=== PATIENT | female | born 1960 | race Hispanic/Latino ===

== ENCOUNTER 2016-12-01 08:45 | Day surgery (SDC) | payer OTHER ==
[~2016-12-01] VITALS: Ht 160 cm; Wt 69.0 kg
[~2016-12-01 08:45] MED LIST: IBUP200C11 PO; Lactated Ringer's 1,000 ML IV ONE
[2016-12-01] MEDS ORDERED: Propofol 10,000 mCg/mL 20 mL Inj ONE (08:46)
[2016-12-01 09:15] VITALS: BP 141/77; PULSE 76; RESP 14; O2SAT 98
[2016-12-01 09:16] VITALS: BP 141/77; PULSE 76; RESP 14; O2SAT 98
[2016-12-01] MEDS ORDERED: Ondansetron 2 mg/mL 2 mL Inj IVPUSH PRN (10:15)
[2016-12-01] MEDS ORDERED: Lactated Ringer's 1,000 ML IV SCH (10:15)
[2016-12-01] MEDS ORDERED: MetoCLOpramide 5 mg/mL 2 mL Inj IVPUSH PRN (10:15)
[2016-12-01 10:19] VITALS: BP 109/69; PULSE 68; RESP 16; O2SAT 97
[2016-12-01 10:29] VITALS: BP 109/69; PULSE 72; RESP 16; O2SAT 98
[2016-12-01 10:39] VITALS: BP 109/66; PULSE 61; RESP 16; O2SAT 98
--- NOTE | 2016-12-01 10:39 | ENDO ---
[address] [address] ENDOSCOPY PROCEDURE PATIENT: ROGELIO LOPEZ : 1960 MR#: [id number] ADMIT: 12/01/2016 JOB ID: [id number] DATE OF SERVICE: 12/01/2016 FIRST PROCEDURE PERFORMED: Esophagogastroduodenoscopy. INDICATION: Gastroesophageal reflux. ASA CLASSIFICATION, MALLAMPATI SCORE AND MEDICATIONS: The patient's ASA classification, Mallampati score and medications as per anesthesia note. INSTRUMENT USED: [id number]. PROCEDURE DETAILS: After informed consent was obtained, the patient was brought into the GI suite, where she was placed on oxygen via nasal cannula and monitored with continuous pulse oximeter, telemetry, and blood pressure monitoring. A time-out was performed. Then, she was placed in the left lateral decubitus position, and medications were administered for sedation. A bite block was then placed, and then the standard EGD scope was inserted through the bite block and advanced under direct visualization to the second portion of the duodenum without difficulty. FINDINGS: 1. Normal appearing duodenal bulb, first and second portions. Multiple random biopsies were obtained. 2. Normal appearing pylorus and antrum. In the body of stomach there were multiple polyps ranging in size from 5 mm to 8 mm. Appearance of these polyps was consistent with fundic gland polyps. The polyps were sampled with a cold biopsy forceps. 3. Retroflexed views in the gastric body revealed normal appearing cardia and fundus. 4. The GE junction was at approximately 39 cm. At 39 cm, there was a 6-7 mm inflammatory appearing nodule suggestive of esophagitis. Multiple biopsies were obtained. 5. The GE junction was slightly irregular. There was a short tongue of salmon-colored mucosa arising from the GE junction. Biopsy was obtained. 6. The remainder of the esophageal exam was otherwise unremarkable. Multiple outside biopsies were obtained in midesophagus secondary to the patient's complaint of dysphagia. IMPRESSION: 1. Multiple gastric body polyps, appearance consistent with fundic gland polyps. 2. Gastroesophageal junction nodule. 3. Irregular gastroesophageal junction. RECOMMENDATIONS: 1. Reflux precautions. PPI daily. 2. Await biopsy results. 3. Proceed to colonoscopy. SECOND PROCEDURE PERFORMED: Colonoscopy. INDICATION: Patient with a history of colon polyps. ASA CLASSIFICATION, MALLAMPATI SCORE AND MEDICATIONS: Please see above for ASA classification, Mallampati score and medications. INSTRUMENT USED: [id number]. PREPARATION QUALITY: Good. PROCEDURE DETAILS: After completion of the EGD exam, a digital rectal exam was performed which was unremarkable. The colonoscope was then inserted into the rectum and advanced under direct visualization to the terminal ileum, which was identified by the presence of the ileocecal valve and villous appearing mucosa of the terminal ileum. Once the terminal ileum was reached, the colonoscope was withdrawn back into the rectum as the mucosa and lumen were examined. In the rectum, retroflexion was performed. Following retroflexion, remaining air in the rectum was suctioned, and procedure was completed. FINDINGS: 1. In the transverse colon there were four polyps that ranged from 4 mm to 6 mm. Polyps were removed with a cold snare. 2. In the descending colon there was a diminutive polyp that was removed with a cold biopsy forceps. 3. In the rectum there was an approximately 7 mm sessile polyp that was removed with a hot snare. 4. The remainder of the colon exam was otherwise unremarkable. IMPRESSION: 1. Four transverse colon polyps. 2. One descending polyp. 3. One rectal polyp. RECOMMENDATIONS: 1. Avoid NSAIDs and anticoagulants for 72 hours. 2. Repeat colonoscopy in three years. COMPLICATIONS: None. ESTIMATED BLOOD LOSS: Less than 5 mL.
--- NOTE | 2016-12-01 10:50 | PCM.HPANE ---
Patient Data Date of Service: December 01, 2016 Surgeon Admitting Provider: Attending Provider:Sheila Sauer MD Primary Care Physician:Grey Rowe MD Other Provider:Uriel Gray Anesthesia Reason for Visit Adenomatous Polyp Of Colon, Gerd Ht/WT & BMI Height (Feet): 5 Height (Inches): 3 Weight (Kilograms): 68.95 Body Mass Index 26.00 Allergies Coded Allergies: acetaminophen (Verified Allergy, Unknown, THROAT SWELLS, 12/01/16) Past Anesthesia History Anesthesia History: Positive for:: Anesthesia Reactions (DIFFICULT TO WAKEUP), Denies:: Abnormal Airway, Difficult Intubation, Fam Anesthesia Reaction, Fam Malignant Hypertherm, Malignant Hyperthermia Diabetes History Hx Diabetes?: No MRSA MRSA: No Medications Home Meds Incl Beta Priscilla: No Reported Medications Ibuprofen (Advil)200 Mg [id number] Mg PO q4-8 hours PRN For Pain 11/30/16 History History of ENT Problems?: Yes HEENT History: Positive for:: Dysphagia Denies:: Abnormal Airway Difficult Intubation Hearing Problem Denture Type: None Teeth Condition: Within Normal Limits Hx of Heart Problems?: No Cardiovascular History: Positive for:: Irregular Heartbeat Denies:: AICD Atrial Fibrillation Chest Pain Hypertension Pacemaker Valvular Heart Disease Other Cardiac History: ELEVATED CHOLERSTRAL Hx of Respiratory Problem?: Yes Respiratory History: Positive for:: Use of C-PAP Machine Hx Neurologic Problems?: No Neurological History: Denies:: CVA Hx of GI Problems?: Yes Gastrointestinal History: Positive for:: Gastroesphageal Reflux Hx of Problems?: No HX of Peritoneal Dialysis: No Hx Musculoskeletal Problems?: No Musculoskeletal History: Denies:: Fibromyalgia Joint Replacement Hx of Psycho/Social Problems?: No Psycho Social History: Denies:: Anxiety Hx Depression Hx Surgeries?: Yes (HYSTERECTOMY TUBAL) Hx Any Other Health Problems?: No Hx Diabetes: No Hx Alcohol Use: No Stop/Bang Treated for Sleep Apnea?: Yes Do You Have a CPAP Machine?: No (ONCE IN A WHILE) Risk Assessment Category Category 1A: Patient has history of documented sleep apnea, and HAS NOT received any narcotic, sedative or anesthesia administration during this stay. Category 1B: Patient has history of documented sleep apnea, and HAS received any narcotic , sedative or anesthesia administration during this stay Category 2: Patient has SUSPECTED Obstructive Sleep Apnea, and HAS received any narcotic , sedative or anesthesia administration during this stay. Category 3: Patient has SUSPECTED Obstructive Sleep Apnea and HAS NOT received narcotic, sedative or anesthesia administration during this stay. Category 4: Outpatient in Procedural Areas with known sleep apnea or who screen positive for High Risk via the STOP/BANG questionnaire. Exam Exam Vital Signs Vital Signs Date Time Temp Pulse Resp B/P Pulse Ox O2 Delivery O2 Flow Rate FiO2 12/01/16 10:19 36.2 68 16 109/69 97 Room Air 12/01/16 09:16 36.9 76 14 141/77 98 Room Air 12/01/16 09:15 76 14 141/77 98 Room Air General Appearance: Oriented X3 HEENT/AIRWAY: MP 2 Lungs: Clear to Auscultation Heart: Exam Unremarkable Meds/Labs/Diagnostics Admission Meds Current Medications Lactated Ringer's (Lr) 1,000 ml @ 10 mls/hr Q24H ONCE IV Last administered on 12/01/16t 09:55; Start 12/01/16 at 06:00; Stop 12/02/16 at 05:59 Plan Impression Patient chart reviewed, patient interviewed and anesthestic plan with risks, benefits, and alternatives discussed, and informed consent obtained. NPO per Anesth. Guidelines: Yes ASA Physical Status: ASA2 Mod Systemic Disease Bene/Risks/Altern/Consents: Yes HP Complete Prior to Induction: Yes Hector Enamorado MD December 01, 2016 10:50
--- NOTE | 2016-12-01 10:51 | PCM.ANEP1 ---
Post Anesthesia Phase 1 PACU Phase 1 Assessment Date of Service: December 01, 2016 Vital Signs Vital Signs Date Time Temp Pulse Resp B/P Pulse Ox O2 Delivery O2 Flow Rate FiO2 12/01/16 10:19 36.2 68 16 109/69 97 Room Air 12/01/16 09:16 36.9 76 14 141/77 98 Room Air 12/01/16 09:15 76 14 141/77 98 Room Air Anesthetic Administered: MAC Level of Alertness: Awake, talking Pain: No Nausea or Vomiting: No Lungs: Clear to Auscultation Complications: No Follow up Care: No Hector Enamorado MD December 01, 2016 10:51
--- NOTE | 2016-12-02 09:54 | PATH ---
SURGICAL PATHOLOGY Attending Physician:Shawna Lozano CASE STATUS: Signed Out PATIENT NAME: ROGELIO ADDISON PID: [id number] : 1960 DATE COLLECTED:12/01/2016 16:23 SPECIMEN: 1: Duodenum, Biopsy 2: Gastric, Biopsy 3: Esophagus, Biopsy 4: Gastric, Biopsy 5: Esophagus, Biopsy 6: Esophagus, Biopsy 7: Colon, Biopsy 8: Colon, Biopsy 9: Rectum, Biopsy CLINICAL HISTORY: 1. DUODENAL BIOPSY 2. GASTRIC BIOPSY 3. ESOPHAGEAL (DISTAL) BIOPSY 4. GASTRIC BODY POLYP BIOPSY 5. GEJ NODULE BIOPSY 6. MID ESOPHAGIAL BIOPSY 7. TRANSVERSE POLYPS 8. DESCENDING POLYP 9. RECTAL POLYP FINAL DIAGNOSIS: 1.DUODENUM BIOPSY: FRAGMENTS OF NORMAL-APPEARING DUODENAL MUCOSA. Normal delicate mucosal villi present. Negative for significant inflammation, dysplasia and malignancy. 2.GASTRIC BIOPSY: FRAGMENTS OF FUNDIC AND ANTRAL MUCOSA NEGATIVE FOR SIGNIFICANT INFLAMMATION. Negative for evidence of Helicobacter. Negative for intestinal metaplasia. Negative for dysplasia and malignancy. 3.DISTAL ESOPHAGUS BIOPSY: SQUAMOUS MUCOSA AND GASTRIC CARDIA-TYPE MUCOSA POSITIVE FOR SPECIALIZED METAPLASIA OF VALADEZ' S-TYPE ESOPHAGUS. Negative for dysplasia and malignancy. Negative for squamous intraepithelial eosinophils. 4.GASTRIC BIOPSY: FUNDIC GLAND POLYP, NEGATIVE FOR ATYPIA. Negative for evidence of Helicobacter. Negative for intestinal metaplasia. Negative for dysplasia and malignancy. 5.ESOPHAGUS BIOPSY: GASTRIC CARDIA-TYPE MUCOSA AND SMALL AMOUNT OF SQUAMOUS MUCOSA WITH CHRONIC ACTIVE INFLAMMATION AND REACTIVE EPITHELIAL CHANGES. Negative for specialized metaplasia of Valadez' s-type esophagus. Negative for dysplasia and malignancy. Negative for squamous intraepithelial eosinophils. 6.MID ESOPHAGUS BIOPSY: FRAGMENTS OF SQUAMOUS EPITHELIUM, NEGATIVE FOR ATYPIA. Negative for intraepithelial eosinophils. 7.COLON BIOPSY: TUBULAR ADENOMA INVOLVING ALL BIOPSY FRAGMENTS. 8.COLON BIOPSY: TUBULAR ADENOMA INVOLVING BOTH BIOPSY FRAGMENTS. 9.RECTUM BIOPSY: TUBULAR ADENOMA INVOLVING BOTH BIOPSY FRAGMENTS. ICD10 CODE K22.70 GROSS DESCRIPTION: The specimen is received in nine formalin filled containers labeled with the patient's name. 1). The specimen is sublabeled "duodenal" and consists of 2 tiny portions of tissue which aggregate to 0.3 x 0.2 x 0.2 CM. The specimen is entirely submitted in cassette 1A. 2). The specimen is sublabeled "gastric" and consists of 3 portions of tissue which aggregate to 0.3 x 0.3 x 0.2 CM. The specimen is entirely submitted in cassette 2A. 3). The specimen is sublabeled "distal esophagus" and consists of a 0.4 x 0.3 x 0.2 CM portion of tissue which is entirely submitted in cassette 3A. 4). The specimen is sublabeled "gastric body polyp" and consists of a 0.3 x 0.3 x 0.3 CM portion of tissue which is entirely submitted in cassette 4A. 5). The specimen is sublabeled "GEJ nodule" and consists of 2 portions of tissue which aggregate to 0.2 x 0.2 x 0.2 CM. The specimen is entirely submitted in cassette 5A. 6). The specimen is sublabeled "mid esophageal" and consists of 2 portions of tissue which aggregate to 0.2 x 0.2 x 0.2 CM. The specimen is entirely submitted in cassette 6A. 7). The specimen is sublabeled "transverse polyp" and consists of 5 portions of tissue which aggregate to 0.5 x 0.5 x 0.3 CM. The specimen is entirely submitted in cassette 7A. 8). The specimen is sublabeled "descending polyp" and consists of 2 portions of tissue which aggregate to 0.2 x 0.2 x 0.2 CM. The specimen is entirely submitted in cassette 8A. 9). The specimen is sublabeled "rectal polyp" and consists of 2 portions of tissue which aggregate to 0.4 x 0.4 x 0.3 CM. The specimen is entirely submitted in cassette 9A. . 12/01/2016 DAC MICRO DESCRIPTION: See diagnosis. ICD-9 CODES: CPT CODES: 1: 45602 2: 39161 3: 12312 4: 27885 5: 38463 6: 40286 7: 65481 8: 50732 9: 95734 Electronically Signed Out Valentin Nathan MD [facility] Pathology [facility] [address], [place] [address] Technical component performed at [facility], [facility] [address], [place], [address]
== END 2016-12-01 23:59 | disposition home or self-care (01) ==
LOC: END 08:45
PROVIDERS: ATTEND Internal Medicine Gastroenterology
DX: Z12.11 Encounter for screening for malignant neoplasm of colon (principal); Z86.010 Personal history of colon polyps; D12.3 Benign neoplasm of transverse colon; D12.4 Benign neoplasm of descending colon; D12.8 Benign neoplasm of rectum; K31.7 Polyp of stomach and duodenum; K22.70 Barrett's esophagus without dysplasia; K21.9 Gastro-esophageal reflux disease without esophagitis; G47.33 Obstructive sleep apnea (adult) (pediatric); Z90.710 Acquired absence of both cervix and uterus
CPT/HCPCS: 43239; 45380; 45385; 88305; J7120

== ENCOUNTER 2017-02-07 10:27 | Emergency (ER) | payer OTHER ==
[~2017-02-07] VITALS: Ht 160 cm; Wt 69.1 kg
[~2017-02-07 10:27] MED LIST changes: -Lactated Ringer's 1,000 ML IV ONE
[2017-02-07 10:50] VITALS: BP 147/86; PULSE 82; RESP 12; O2SAT 99
[2017-02-07] MEDS ORDERED: Ondansetron 2 mg/mL 2 mL Inj IVPUSH PRN (11:25)
[2017-02-07] MEDS ORDERED: 0.9% Sodium Chloride 1,000 ML IV ONE (11:25)
[2017-02-07 11:27] LABS: BASOPHILS % (AUTO) 0.1 % (0-3); EOSINOPHILS % (AUTO) 0 % (0-5); MONOCYTES % (AUTO) 2.9 % (4-12); Mean Corpuscular Hemoglobin 31.2 pg (27.0-35.0); Mean Corpuscular Volume 85.8 fL (81-100); NEUTROPHILS % (AUTO) 88.9 % (40-74); Platelet Count 248 bil/L (150-400)
--- NOTE | 2017-02-07 11:27 | ED.REPORT ---
HPI-Abd Pain F 40 and Over Date of Service Feb 07, 2017 ED Provider: Valentin Tate MD Patient is a 56 year old female with a hx of GERD who presents to the ED complaining of epigastric pain onset 0200 this morning that prevented her from sleeping. Her pain radiates into her back. Associated symptoms include vomiting x4 after drinking water and chest pain. She denies SOB, diaphoresis, extremity pain, or any other symptoms. She had an endoscopy recently for her reflux. She takes Omeprazole daily. Nursing Notes Stated Complaint: ABDOMINAL PAIN Chief Complaint: Female Abdominal Pain Nursing Notes Reviewed: Yes Allergies: Coded Allergies: acetaminophen (Verified Allergy, Unknown, THROAT SWELLS, 12/01/16) Scheduled Amoxicillin/Clav K 875-125 mg (Augmentin 875-125 mg) 1 Each Tablet 1 TABLET PO BID Scheduled PRN Ibuprofen (Advil) 200 Mg Capsule 200 MG PO q4-8 hours PRN PRN For Pain Oxycodone (Roxicodone) 5 Mg Tablet 5 MG PO Q4H PRN PRN For Pain General Time Seen by MD: 11:23 Chief Complaint Abdominal pain Hx Obtained From: Patient, Daughter, [employer] Floor Arrived By: Walk-in Sudden in Onset?: Yes Onset Occurred: 9 - 12 hours ago Symptom Duration: Since onset Risk Factors )( AAA Risk Stratification No Hypertension, No Prior AAA, No Smoking Risk factors reviewed Past Medical History Past Medical History GERD Past Surgical History Reports: , Hysterectomy Reports: Tubal ligation Smoking History Former Smoker Social History Other Social History: Good social support, Local resident Ambulatory Status Independent Review of Systems Respiratory: Denies: Shortness of breath Cardiovascular: Reports: Chest pain GI: Reports: Abdominal pain, Vomiting Musculoskeletal: Denies: Extremity pain Complete sys rev & neg: except as marked. Skin: Denies Diaphoresis Physical Exam Vital Signs Vital Signs (First) Date Time Temp Pulse Resp B/P Pulse Ox O2 Delivery O2 Flow Rate FiO2 02/07/17 10:50 37.0 82 12 147/86 99 Room Air Initial VS: Reviewed Head / Eyes: Atraumatic, Normocephalic Neck: Full range of motion Skin: Warm, Dry Neurologic: Alert, Oriented, Nonfocal Psychiatric: Mood/affect normal, Behavior normal, Normal thought content General/Constitutional: Awake, Alert, No acute distress Respiratory / Chest: Breath sounds NL, Breath sounds = bilat, No respiratory distress Cardiovascular: Heart rate NL, Regular rhythm, Heart sounds NL, No gallop, No murmurs, No rubs Abdomen: Atraumatic, Soft Mild Pineda's sign Back: Atraumatic Interpretation & Diagnostics Lab Results Interpretation Result Diagram: 02/07/17 1115 02/07/17 1115 Test 02/07/17 11:15 02/07/17 13:07 White Blood Count 17.8th/mm3 (3.8-10.1) Red Blood Count 5.13mil/mm3 (3.90-5.20) Hemoglobin 16.0g/dL (12.0-15.6) Hematocrit 44.0% (35.0-46.0) Mean Corpuscular Volume 85.8fL (81-100) Mean Corpuscular Hemoglobin 31.2pg (27.0-35.0) Mean Corpuscular Hemoglobin Concent 36.4% (32.0-37.0) Red Cell Distribution Width 13.1% (12.3-15.4) Platelet Count 248bil/L (150-400) Neutrophils (%) (Auto) 88.9% (40-74) Lymphocytes (%) (Auto) 7.9% (14-46) Monocytes (%) (Auto) 2.9% (4-12) Eosinophils (%) (Auto) 0% (0-5) Basophils (%) (Auto) 0.1% (0-3) Sodium Level 137mEq/L (134-144) Potassium Level 4.0mEq/L (3.5-5.2) Chloride Level 101mEq/L (97-108) Carbon Dioxide Level 22mmol/L (18-29) Blood Urea Nitrogen 9mg/dL (6-24) Creatinine 0.49mg/dL (0.57-1.00) Estimat Glomerular Filtration Rate 189mL/min (>59) Glucose Level 135mg/dL (60-99) Calcium Level 9.3mg/dL (8.5-10.1) Magnesium Level 2.0mg/dL (1.6-2.6) Total Bilirubin 1.3mg/dL (0.0-1.2) Aspartate Amino Transf (AST/SGOT) 32U/L (0-50) Alanine Aminotransferase (ALT/SGPT) 55U/L (0-32) Alkaline Phosphatase 91U/L (25-150) Troponin T 0.010ug/L (0.0-0.011) Total Protein 8.0g/dL (6.4-8.4) Albumin 4.5g/dL (3.4-5.0) Lipase 46U/L (13-60) Hold Clemons Top Tube Received (Received) Urine Color Straw (YELLOW) Urine Appearance Hazy (CLEAR,HAZY) Urine pH 6.5 (5.0-8.0) Urine Specific [place] <=1.005 (1.003-1.035) Urine Protein Negativemg/dL (NEG,TRACE) Urine Glucose (UA) Negativemg/dL (NEGATIVE) Urine Ketones Tracemg/dL (NEGATIVE) Urine Occult Blood Small (NEGATIVE) Urine Nitrite Negative (NEGATIVE) Urine Bilirubin Negative (NEGATIVE) Urine Urobilinogen Normalmg/dL (NORMAL) Urine Leukocyte Esterase Negative (NEGATIVE) Urine RBC 3-10/hpf (0-2) Urine WBC 0-5/hpf (0-5) Urine Epithelial Cells Occasional/hpf (NONE-MOD) Urine Crystals None seen (NONE SEEN) Urine Bacteria Few/hpf (NONE-FEW) Urine Hyaline Casts None/lpf (NONE) Urine Granular Casts None seen (NONE SEEN) Urine Waxy Casts None seen (NONE SEEN) Urine Red Blood Cell Casts None seen (NONE SEEN) Urine White Blood Cell Casts None seen (NONE SEEN) Urine Mucus None seen (None Seen) Urine Trichomonas None seen (NONE SEEN) Urine Yeast None (NONE SEEN) Urine Culture Reflexed Not indicated Hold Urine Received (Received) Lab Results Interpretation: US ABDOMINAL: IMPRESSION: 1. Hepatic steatosis. No splenomegaly. 2. Cholelithiasis. Findings are borderline for suspected cholecystitis, negative Pineda's sign noted. Gallbladder wall thickening which is nonspecific and could reflect liver disease as well as gallbladder inflammation. The common hepatic duct is normal in caliber, common bile duct not well-seen. Note: Findings discussed with Dr. Tate in the ED. Surgical consultation is suggested. Dictated by: Ruddy Beckett M.D. on 02/07/2017 at 14:01 Approved by: Ruddy Becktet M.D. on 02/07/2017 at 14:11 ECG Interpretation ECG Interpretation: sinus at 69 Q's in 3 and possibly [address] changes Time: 11:34 Interpreted by: ED physician Re-Eval/Medical Decision Re-Evaluation/Progress #1: Time of Eval: 13:44 )( Re-Eval Abdomen: Soft Re-Evaluation/Progress Note: Discussed imaging results and plan for surgery consult. Patient understands and agrees with plan. All questions addressed at this time. Re-Evaluation/Progress #2: Time of Eval: 14:00 )( Re-Eval Abdomen: Soft Re-Evaluation/Progress Note: Discussed plan for admission. Patient understands and agrees with plan. All questions addressed at this time. Consultation : Referral / Consult Name: Jabari Lundy MD Consulted With: Surgeon Call Returned at: 13:50 Artificial Plastic Eye Maker: Will see patient, Agrees with eval, Agrees with plan, Accepts admit Note: Discussed patient's case. Surgical consult completed, initially plan to admit however after discussion with the patient in the presence of an cement worker advised outpatient treatment with antibiotics and pain medications. Counseled Regarding: Diagnosis, Lab results, Need for admission Discharge & Departure Primary Impression: Biliary colic Disposition: Home Discharge Condition All VS Reviewed: Yes Condition: Stable Patient Instructions: Biliary Colic (ED) Additional Instructions: Emergency department evaluation today included interview, examination, labs, ultrasound and surgical consult. We are concerned that it is your gallbladder that is causing these symptoms of pain. If you have persistent pain, fevers or uncontrolled vomiting return emergency department. Take Augmentin one twice daily for 7 days. Oxycodone 1 every 4 hours as needed for pain. Follow-up with primary care next week. Diet is as as tolerated, may want to refrain from rich or fatty foods initially. Referrals: Grey Rowe MD (PCP) Scribe Attestation Portions of this note were transcribed by Shereen Vogt. I, Dr. Tate personally performed the history, physical exam and medical decision-making; I reviewed and confirmed the accuracy of the information in the transcribed note. Signed by: Shereen Vogt 02/07/2017, 5038 copies to: [facility] Valentin Tate MD Feb 07, 2017 11:27 SHEREEN VOGT Feb 07, 2017 11:39
[2017-02-07] MEDS: HYDROmorphone 0.5 mg/0.5 mL iSecure Syringe IVPUSH PRN ×2 (11:51→13:12)
[2017-02-07 13:47] VITALS: BP 133/82; PULSE 77; RESP 16; O2SAT 98
--- NOTE | 2017-02-07 14:13 | DRSVH ---
PROCEDURE: US ABDOMEN INDICATIONS: epigastric pain and leukocytosis TECHNIQUE: Real-time scanning was performed of the abdominal and retroperitoneal organs, with image documentatio n. COMPARISON: None. FINDINGS: Liver length: 16.07 cm Gallbladder Wall Thickness: 4 mm CHD: 1.40 mm CBD: Not measured Spleen length: 9.59 cm Right kidney length: 11.20 cm Left kidney length: 11.57 cm Aorta(Proximal): 2.37 cm Aorta(Mid): 1.48 cm, 1.55 cm Aorta(Distal): 1.54 cm RCIA: 9.50 mm LCIA: 9 mm Liver: Liver is normal in size and hyperechoic in echotexture with focal sparing near the gallbladde r fossa.. Gallbladder: Gallbladder contains multiple dependent stones. Gallbladder wall is slightly thickened a nd minimally edematous, measuring 3.2-4.8 mm. The technologist reported a negative Pineda's sign. Biliary ducts: Intrahepatic bile ducts are non-dilated. Extrahepatic bile duct caliber is normal. Normal is 6-7 mm or less in diameter, or 10 mm or less post-cholecystectomy. Pancreas: Visualized portions of the pancreas are sonographically normal. Spleen: Spleen is normal in size and homogeneous in echotexture. Kidneys: Kidneys are normal in size and echotexture. No hydronephrosis or nephrolithiasis. No devin d masses. Aorta: Visualized aorta is normal in caliber at less than 3 cm. Iliacs: Proximal common iliac arteries are normal in caliber at less than 2.5 cm. IVC: Intrahepatic inferior vena cava is patent. Miscellaneous: No free abdominal fluid. IMPRESSION: 1. Hepatic steatosis. No splenomegaly. 2. Cholelithiasis. Findings are borderline for suspected cholecystitis, negative Pineda's sign noted. Gallbladder wall thickening which is nonspecific and could reflect liver disease as well as gallblad kade inflammation. The common hepatic duct is normal in caliber, common bile duct not well-seen. Note: Findings discussed with Dr. Tate in the ED. Surgical consultation is suggested. Dictated by: Ruddy Beckett M.D. on 02/07/2017 at 14:01 Approved by: Ruddy Beckett M.D. on 02/07/2017 at 14:11
[2017-02-07 14:37] LABS: APPEARANCE,URINE HAZY (CLEAR,HAZY); COLOR,URINE STRAW (YELLOW); OCCULT BLOOD,URINE SMALL (NEGATIVE); PH,URINE 6.5 (5.0-8.0); UROBILINOGEN,URINE NORMAL (NORMAL)
[2017-02-07] MEDS ORDERED: Lactated Ringer's 1,000 ML IV ONE (15:27)
[2017-02-07] MEDS ORDERED: AMOX-366 PO (16:50)
[2017-02-07] MEDS ORDERED: OXYC-474 PO (16:50)
--- NOTE | 2017-02-07 16:59 | CONS ---
[address] [id number] CONSULTATION REPORT PATIENT: ROGELIO LOPEZ : 1960 MR#: [id number] ADMIT: 02/07/2017 JOB ID: [id number] DATE OF SERVICE: 02/07/2017 CHIEF COMPLAINT/IDENTIFICATION: Dr. Tate in the emergency department has asked me to consult on this 56-year-old woman with symptomatic gallstones. HISTORY OF PRESENT ILLNESS: Patient reports since yesterday having mid-epigastric pain, not brought on by eating, not alleviated by any activity or position. This radiates around both sides of her chest and rib cage. She has had no nausea or vomiting. She has never had this pain before. She does have known GE reflux disease and is on omeprazole. She denies cardiac disease or significant cardiac risk factors. PAST MEDICAL HISTORY: GE reflux disease. Colon polyps. Obstructive sleep apnea. MEDICATIONS: None. ALLERGIES: ACETAMINOPHEN. SOCIAL HX: Lives with her two daughters, works outside the home, negative tobacco, negative daily alcohol. FAMILY HISTORY: Noncontributory. REVIEW OF SYSTEMS: Noncontributory. PHYSICAL EXAMINATION: BMI is 27. Vital signs are stable. Her head within normal limits. Her temperature is 37. Sclerae are clear. Neck is supple. Lungs are clear. Heart sounds are regular. Breasts are not examined. Abdomen has minimal discomfort with deep right upper quadrant palpation. Extremities are without edema. LABORATORY DATA: White count is 17.8, hematocrit is 44. Chemistries are normal. Liver function tests are mildly abnormal with a bilirubin of 1.3, AST is 32, ALT of 55 and alk phos 91, lipase is 46. Urinalysis is negative. EKG is normal without signs of ischemia. IMAGING: Abdominal ultrasound demonstrates cholelithiasis with mild gallbladder wall thickening of 3.2 mm to 4.8 mm, no pericholecystic fluid and hepatic steatosis. IMPRESSION/PLAN: My impression is that this likely represents symptomatic gallstones, possibly mild acute cholecystitis. According to the patient, this is her 1st episode of any such problems. We discussed my recommendation of a laparoscopic cholecystectomy versus the option of simply trying to treat her with antibiotics and pain pills. We discussed that as this is her 1st episode, that some statistics would indicate that she only has a 50% likelihood of having a 2nd attack, though I have cautioned her that the 2nd attack could be much more severe. I think she would prefer not to have surgery unless it is absolutely mandatory and my recommendation is to proceed with laparoscopic cholecystectomy sharath, and I have offered her this. I think it is reasonable for her to try to get by with p.o. antibiotics and p.o. pain pills. I discussed this with Dr. Taet and he will discharge the patient and she will follow up with her primary care provider.
[2017-02-07 17:55] VITALS: BP 140/69; PULSE 72; RESP 14; O2SAT 97
== END 2017-02-07 17:58 | disposition home or self-care (01) ==
LOC: SED 10:27
DX: K80.20 Calculus of gallbladder without cholecystitis without obstruction (principal); K21.9 Gastro-esophageal reflux disease without esophagitis; Z87.891 Personal history of nicotine dependence; Z90.710 Acquired absence of both cervix and uterus; Z88.6 Allergy status to analgesic agent
CPT/HCPCS: 36415; 76700; 80053; 81000; 81025; 83690; 83735; 84484; 85025; 93005; 96361; 96374; 96375; 99285; J1170; J2405; J7030